=== PATIENT | male | born 1975 | race American Indian/Alaskan Native ===

== ENCOUNTER 2017-10-17 13:28 | Emergency (ER) | payer OTHER ==
[2017-10-17 13:36] VITALS: BP 133/93
--- NOTE | 2017-10-17 14:46 | Emergency Department Report ---
HPI - General Chief Complaint: Upper Respiratory Infection Time Seen by Provider: 10/17/17 14:38 - HPI HPI: 42-year-old male presents to the emergency department with a three-day history of sore throat, nasal congestion and sinus drainage, sinus/facial pressure, occasional cough. He also felt like there was some discomfort in his ears intermittently today. He tried some Claritin for his symptoms. No fever, chest pain, shortness of breath, nausea, vomiting, diarrhea. 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 He has a primary care physician but has not seen them in a long time. No sick contacts at home. ED Past Medical Hx - Past Medical History Previous Medical History?: No - Surgical History Past Surgical History?: No - Medications Home Medications: Home Medications Medication Instructions Recorded Confirmed Last Taken Type Azithromycin [Zithromax Z-MILLIE] 250 mg PO DAILY #6 tab 10/17/17 Unknown Rx Fluticasone [Flonase] 1 spray NS QDAY #1 bottle 10/17/17 Unknown Rx ED Review of Systems ROS: Stated complaint: COLD FLU SX Other details as noted in HPI Comment: All other systems reviewed and negative Constitutional: denies: chills, fever Eyes: denies: eye pain, eye discharge, vision change ENT: ear pain, throat pain, congestion Respiratory: cough. denies: shortness of breath Cardiovascular: denies: chest pain, palpitations Gastrointestinal: denies: abdominal pain, nausea, diarrhea Genitourinary: denies: urgency, dysuria Musculoskeletal: denies: back pain, joint swelling, arthralgia Skin: denies: rash, lesions Neurological: denies: headache, weakness, paresthesias Physical Exam - Physical Exam Vital Signs: Vital Signs 10/17/17 13:35 Temperature 98.4 F Pulse Rate 90 Respiratory 18 Rate Blood Pressure 133/93 O2 Sat by Pulse 98 Oximetry Physical Exam: GENERAL: The patient is well-developed well-nourished. HENT: Normocephalic. Atraumatic. Patient has moist mucous membranes. Patient has tonsillar hypertrophy but no erythema or exudates. There is some posterior pharynx cobblestoning appearance. Normal-appearing bilateral external ear canal and tympanic membranes. EYES: Extraocular motions are intact. Pupils equal reactive to light bilaterally. NECK: Supple. Trachea is midline. CHEST/LUNGS: Clear to auscultation. No cough heard during examination. No tachypnea or accessory muscle use. There is no respiratory distress noted. HEART/CARDIOVASCULAR: Regular. There is no tachycardia. There is no murmur. ABDOMEN: Abdomen is soft, nontender. Patient has normal bowel sounds. There is no abdominal distention. SKIN: Skin is warm and dry. NEURO: The patient is awake, alert, and oriented. The patient is cooperative. The patient has no focal neurologic deficits. The patient has normal speech and gait. MUSCULOSKELETAL: There is no tenderness or deformity. There is no limitation range of motion. There is no evidence of acute injury. ED Course Vital Signs 10/17/17 13:35 Temperature 98.4 F Pulse Rate 90 Respiratory 18 Rate Blood Pressure 133/93 O2 Sat by Pulse 98 Oximetry ED Medical Decision Making - Medical Decision Making Vital signs stable. He has some signs of sinus congestion and drainage. His complaints appear consistent with sinusitis. He'll be treated with Flonase and a Z-Millie. Symptoms started about 3 days ago and therefore he is beyond the time where it is indicated for Tamiflu therapy and therefore I did not feel the need to check him for influenza. He's been encouraged to follow up with his PCP and return to the ER with any worsening of symptoms or any acute distress. - Differential Diagnosis sinusitis, influenza, pneumonia, otitis media, pharyngitis Critical Care Time: No Critical care attestation.: If time is entered above; I have spent that time in minutes in the direct care of this critically ill patient, excluding procedure time. ED Disposition Clinical Impression: Sinusitis Qualifiers: Sinusitis location: unspecified location Chronicity: unspecified Qualified Code (s): J32.9 - Chronic sinusitis, unspecified Pharyngitis Qualifiers: Pharyngitis/tonsillitis etiology: unspecified etiology Qualified Code(s): J02.9 - Acute pharyngitis, unspecified Otalgia Qualifiers: Laterality: bilateral Qualified Code(s): H92.03 - Otalgia, bilateral Disposition: -01 TO HOME OR SELFCARE Is pt being admited?: No Condition: Good Instructions: Pharyngitis (ED), Sinusitis (ED), Earache (ED) Additional Instructions: Please follow-up with your primary care physician in the next few days. Return to the emergency Department with any worsening of your symptoms or any acute distress. He can take Tylenol every 4 hours and ibuprofen every 6 hours, using weight-based dosing, as needed for fever or discomfort. Prescriptions: Azithromycin [Zithromax Z-MILLIE] 250 mg PO DAILY #6 tab Fluticasone [Flonase] 1 spray NS QDAY #1 bottle Referrals: MAXINE COLEMAN JR, MD [Staff Physician] - 3-5 Days [facility] [Outside] - 3-5 Days Forms: Work/School Release Form(ED) Time of Disposition: 14:45
== END 2017-10-17 14:53 | disposition home or self-care (01) ==
LOC: ED 13:28
DX: J32.9 Chronic sinusitis, unspecified (principal); J02.9 Acute pharyngitis, unspecified; H92.03 Otalgia, bilateral
CPT/HCPCS: 99282